=== PATIENT | female | born 1955 | race Caucasian/White ===

== ENCOUNTER → 2021-05-13 | Day surgery (SDC) | payer MEDICARE, OTHER ==
[~2021-05-13] VITALS: Ht 162.6 cm; Wt 90.7 kg
[~2021-05-13] MED LIST: AMLODIPINE BESY10 MG PO; ASPIRIN EC81 MG PO; ATORVASTATIN CA10 MG PO; BISOPROLOL FUMAR5 M1 PO; CHLORTHALIDONE25 MG PO; IBUPROFEN800 M1 PO; LOSARTAN POTASS50 MG PO; OMEPRAZOLE 20MG20 MG PO; POTASSIUM CHLO20 ME2 PO; SYNTHROID88 MCG PO; VITAMIN D310 MC2 PO
[2021-05-13 10:58] LABS: BUN/CREAT RATIO (CALC) 11.2 RATIO; CREATININE 1.25 mg/dL (0.51-0.95); POTASSIUM 4.1 mmol/L (3.5-5.1)
== END | disposition home or self-care (01) ==
LOC: FAS 10:03
PROVIDERS: Anesthesiology
DX: D25.0 Submucous leiomyoma of uterus (principal); K21.9 Gastro-esophageal reflux disease without esophagitis; E78.5 Hyperlipidemia, unspecified; I12.9 Hypertensive chronic kidney disease with stage 1 through stage 4 chronic kidney disease, or unspecified chronic kidney disease; E03.9 Hypothyroidism, unspecified; Z79.82 Long term (current) use of aspirin; N18.9 Chronic kidney disease, unspecified; N88.2 Stricture and stenosis of cervix uteri; I25.2 Old myocardial infarction; Z20.822 Contact with and (suspected) exposure to COVID-19
CPT/HCPCS: 36415; 80048; 93005; J1100; J2250; J2405; J2704; J3010; J7120